=== PATIENT | female | born 1990 | race African-American/Black ===

== ENCOUNTER 2020-12-17 19:25 | Emergency (ER) | payer OTHER, SELFPAY ==
--- NOTE | ~2020-12-17 | XR_ITS ---
EXAMINATION: XR KNEE, LEFT CLINICAL INFORMATION: Knee pain COMPARISON: None TECHNIQUE: Two views of the left knee. FINDINGS: Bones and soft tissues are normal. No fracture or joint effusion. Alignment is anatomic. Joint spaces are well maintained. No abnormal soft tissue calcification. XR/XR knee LT 2V IMPRESSION: Normal left knee.
[2020-12-17 19:34] VITALS: BP 100/76; PULSE 73; O2SAT 97
[2020-12-17 20:49] VITALS: BP 163/94; PULSE 64; RESP 16; TEMP 36.5; O2SAT 100; BMI 41.1
--- NOTE | 2020-12-17 21:44 | ED_ITS ---
HPI - General Adult General Chief complaint: General Medical <Cy Dorantes NP - Last Filed: 02/02/21 17:32> Stated complaint: PAIN LT KNEE <Cy Dorantes NP - Last Filed: 02/02/21 17:32> Time Seen by Provider: 12/17/20 21:44 <Cy Dorantes NP - Last Filed: 02/02/21 17:32> Source: patient <Cy Dorantes NP - Last Filed: 02/02/21 17:32> Mode of arrival: ambulatory <Cy Dorantes NP - Last Filed: 02/02/21 17:32> Limitations: no limitations <Cy Dorantes NP - Last Filed: 02/02/21 17:32> History of Present Illness HPI narrative: Pain in the left knee after getting out of bed and feeling like stepped on it wrong way. <Cy Dorantes NP - Last Filed: 02/02/21 17:32> Onset (ago): day(s) <Cy Dorantes NP - Last Filed: 02/02/21 17:32> Location: left <Cy Dorantes NP - Last Filed: 02/02/21 17:32> Radiation: non-radiation <Cy Dorantes NP - Last Filed: 02/02/21 17:32> Severity: moderate <Cy Dorantes NP - Last Filed: 02/02/21 17:32> Quality: aching <Cy Dorantes NP - Last Filed: 02/02/21 17:32> Pain Consistency: intermittent <Cy Dorantes NP - Last Filed: 02/02/21 17:32> Relieving factors: immobilization <Cy Dorantes NP - Last Filed: 02/02/21 17:32> Exacerbating factors: movement <Cy Dorantes NP - Last Filed: 02/02/21 17:32> Associated symptoms: denies other symptoms <Cy Dorantes NP - Last Filed: 02/02/21 17:32> Treatments prior to arrival: none <Cy Dorantes NP - Last Filed: 02/02/21 17:32> Related Data Home medications: Previous Rx's Medication Instructions Recorded ibuprofen 800 mg PO Q8H PRN #30 tab 12/17/20 <Cy Dorantes NP - Last Filed: 02/02/21 17:32> Allergies/adverse reactions: Allergies Allergy/AdvReac Type Severity Reaction Status Date / Time No Known Allergies Allergy Verified 12/17/20 22:00 [No Known Allergies*] <Cy Dorantes NP - Last Filed: 02/02/21 17:32> Review of Systems Review of Systems: Constitutional: No Weight loss, No Fever, No Chills, No Night Sweats, No Fatigue, No Malaise ENT/Mouth: No Hearing loss, No Ear Pain, No Nasal Congestion, No Sinus Pain, No Hoarseness, No sore throat, No Rhinorrhea, No Swallowing Difficulty Eyes: No Eye Pain, No Swelling, No Redness, No Foreign Body, No Discharge, No Vision Changes Cardiovascular: No Chest Pain, No SOB, No Dyspnea on Exertion, No Orthopnea, No Edema, No Palpitations Respiratory: No Cough, No Sputum, No Wheezing, No Smoke Exposure, No Dyspnea Gastrointestinal: No Nausea, No Vomiting, No Diarrhea, No Constipation, No abdominal Pain, No Hematochezia, No Melena Genitourinary: no irregular bleeding, No Dysuria, No Urinary Frequency, No Hematuria, No Urinary Incontinence, No Urgency, No Flank Pain, No Urinary Flow Changes, No Hesitancy Musculoskeletal: No joint pain, No Myalgias, No Joint Swelling, as noted per HPI Skin: No Skin Lesions, No rash Neuro: No Weakness, No Numbness, No Paresthesias, No Loss of Consciousness, No Dizziness, No Headache Psych: No Social Issues Heme/Lymph: No Bruising, No Bleeding,No Lymphadenopathy Endocrine: No Polyuria, No Polydipsia, No Temperature Intolerance <Cy Dorantes NP - Last Filed: 02/02/21 17:32> Yes all other systems are reviewed and are negative <Cy Dorantes NP - Last Filed: 02/02/21 17:32> [facility] Past Medical History Medical History: Medical History (Updated 12/19/20 @ 00:[address]) No known health problems <Cy Dorantes NP - Last Filed: 02/02/21 17:32> Social History Social History: Social History Advance Directives: No Advance Directives Information Provided: Yes Patient : No <Cy Dorantes NP - Last Filed: 02/02/21 17:32> Physical Exam Vital Signs: Vital Signs: Last Vital Signs Temp 97.7 F 12/17/20 20:49 Pulse 64 12/17/20 20:49 Resp 16 12/17/20 20:49 BP 163/94 H 12/17/20 20:49 Pulse Ox 100 12/17/20 20:49 Body Mass Index 41.1 Reviewed <Cy ALESSANDRA Dorantes - Last Filed: 02/02/21 17:32> Vital Signs: Last Vital Signs Temp 97.7 F 12/17/20 20:49 Pulse 64 12/17/20 20:49 Resp 16 12/17/20 20:49 BP 163/94 H 12/17/20 20:49 Pulse Ox 100 12/17/20 20:49 Body Mass Index 41.1 <Wilbert Stapleton MD - Last Filed: 03/07/21 09:38> Const: General: cooperative and healthy appearing; No acute distress or intoxicated appearing <[facility] ALESSANDRA Dorantes - Last Filed: 02/02/21 17:32> Nutritional Appearance: average body habitus <[facility] Jose E BAR HOST/HOSTESS - Last Filed: 02/02/21 17:32> Orientation/consciousness: patient oriented x3 <[facility] ALESSANDRA Dorantes - Last Filed: 02/02/21 17:32> HENMT: Head: Yes normal to inspection <[facility] Jose E BAR HOST/HOSTESS - Last Filed: 02/02/21 17:32> Ears: hearing grossly normal bilaterally <[facility] ALESSANDRA Dorantes - Last Filed: 02/02/21 17:32> Resp: Effort & Inspection: normal respiratory effort <[facility] ALESSANDRA Dorantes - Last Filed: 02/02/21 17:32> Cardio: Jugular venous distension: no JVD <[facility] Jose E BAR HOST/HOSTESS - Last Filed: 02/02/21 17:32> GI: Inspection: Yes normal to inspection <[facility] ALESSANDRA Dorantes - Last Filed: 02/02/21 17:32> Percussion: Yes normal to percussion <[facility] ALESSANDRA Dorantes - Last Filed: 02/02/21 17:32> Auscultation: normal bowel sounds <[facility] ALESSANDRA Dorantes - Last Filed: 02/02/21 17:32> : General: Yes no CVA tenderness <Cyjong Dorantes NP - Last Filed: 02/02/21 17:32> Back/Spine/Pelvis: Back: no CVA tenderness <Cy Dorantes NP - Last Filed: 02/02/21 17:32> Skin: General skin exam: no rashes or lesions noted <Cy Dorantes NP - Last Filed: 02/02/21 17:32> Neuro: General: patient oriented x3 <Cy Dorantes NP - Last Filed: 02/02/21 17:32> Extrem: General: Yes normal to inspection <Cyjong Dorantes NP - Last Filed: 02/02/21 17:32> Course Course Course Narrative: I have reviewed the chart <Wilbert Stapleton MD - Last Filed: 03/07/21 09:38> Medical Decision Making Imaging Data Left knee x-ray: Radiologist's impression: [address] [id number] ReportSigned Patient: Denise BocanegraMR#: [id number]: 1990Acct:[id number]/Sex: 30 / FADM Date: 12/17/20Loc: HO.EDAttending Dr: Ordering Physician: Cy Dorantes NP Date of Service: 12/17/20 Procedure(s): XR knee LT 2V Accession Number(s): [id number] cc: Cy Dorantes NP~ EXAMINATION: XR KNEE, LEFT CLINICAL INFORMATION: Knee pain COMPARISON: None TECHNIQUE: Two views of the left knee. FINDINGS: Bones and soft tissues are normal. No fracture or joint effusion. Alignment is anatomic. Joint spaces are well maintained. No abnormal soft tissue calcification. XR/XR knee LT 2V IMPRESSION: Normal left knee. Dictated By:WILBERT MONTOYA MDSigned By:<Electronically signed by WILBERT MONTOYA MD in OV>12/17/202210 DD/ 44TD/TT: Medication Technician: SS <Cy Dorantes NP - Last Filed: 02/02/21 17:32> Discharge Plan Discharge Clinical Impression: Muscle strain of left knee <Cy Dorantes NP - Last Filed: 02/02/21 17:32> Patient Disposition: Home, Self-Care <Cy Dorantes NP - Last Filed: 02/02/21 17:32> Instructions: Knee Sprain (ED) <Cy Dorantes NP - Last Filed: 02/02/21 17:32> Additional Instructions: X-ray of the knee did not show any acute findings Your exam and presentation is consistent with strain of the muscle and ligament taken of the knee. You could have a partial strain/tear of the ligaments of the knee. For this please use Jamie wrap, crutches and ice, elevate and take ibuprofen as prescribed. If he continues to have pain after 1 week of this prescribed therapy follow-up with orthopedics. Return if any concerns or worsening symptoms Thank you <Cy Dorantes NP - Last Filed: 02/02/21 17:32> Prescriptions: New ibuprofen 800 mg tablet 800 mg PO Q8H PRN (Reason: pain) Qty: 30 RF: 0 <Cy Dorantes NP - Last Filed: 02/02/21 17:32> Referrals: Leonardo Zheng MD [Physician] - 1 week <Cy Dorantes NP - Last Filed: 02/02/21 17:32> Stand Alone Forms: Work/School Release <Cy Dorantes NP - Last Filed: 02/02/21 17:32> Interventions: ED Discharge Assessment Last Done: 12/17/20 23:13 <Cy Dorantes NP - Last Filed: 02/02/21 17:32> Discharge Date/Time: 12/17/20 23:30 <Cy Dorantes NP - Last Filed: 02/02/21 17:32>
[2020-12-17] MEDS: Ibuprofen 800 MG TABLET PO (23:14)
--- NOTE | 2020-12-17 23:39 | PC.NURSE ---
PT HAD BEEN EVALUATED BY PCT WITH CRUTCHES PT ABLE TO WALK BUT STATES IT HURTS TO WALK WITH ROSETTE WRAP AND CRUTCHES. PT GIVEN MOTRIN BY RN LIDIA. PT REQUEST A W/C TO GO TO WAITING ROOM. PT PLACED IN W/C AND THEN PROCEEDED TO SWEAR AT NURSE PT STATES SHE WANTS STRONGER MEDICATION AND SHE HAS NO ASSISTANCE AT HOME. PT STATES JUST CONTINUE TO SWEAR AT NURSE AND NURSE TOLD PT IF SHE CONTINUED TO SWEAR AT HER SHE WOULD HAVE TO GET SECURITY. NURSE GOT ASSISTANCE WITH PT TO MOVE PT TO WAITING ROOM WITH JAZMIN GUPTA. PT PRECEED TO BE ANGRY AND STATE ALL HER QUESTION WERE NOT ANSWER PT WAS TOLD WE COULD GET THE PROVIDER FOR HER IF SHE HAD ANYMORE QUESTION PT DECLINE AND WENT TO WAITING ROOM WITH PCT.
--- NOTE | 2020-12-18 00:06 | PC.NURSE ---
PT VERY UPSET ABOUT HER LIFE SITUATION AND SHE HAD JUST STARTED A NEW JOB AND THIS WAS HER 2 ND DAY AND SHE HAD TO LEAVE BECAUSE HER KNEE SHE STATED GAVE OUT NO FALL JUST PAIN. PT ALSO UPSET SHE STATES SHE A SINGLE MOM WHO LIVE IN A RETIREMENT. PT ANGRY TOLD TECH THAT SHE WANT TO GO TO [facility] SO THEY WOULD TREAT HER PAIN PROPERLY WHEN BEING MOVED TO WAITING ROOM.
== END 2020-12-17 23:30 | disposition home or self-care (01) ==
PROVIDERS: Emergency Provider Internal Medicine; PCP Internal Medicine
DX: S86.912A Strain of unspecified muscle(s) and tendon(s) at lower leg level, left leg, initial encounter (principal); X58.XXXA Exposure to other specified factors, initial encounter; Y93.89 Activity, other specified; Y92.511 Restaurant or cafe as the place of occurrence of the external cause; Y99.0 Civilian activity done for income or pay
CPT/HCPCS: 73560; 99283; 99284

== ENCOUNTER 2023-12-13 10:29 | Emergency (ER) | payer OTHER, SELFPAY ==
[2023-12-13 11:09] VITALS: BP 146/80; PULSE 62; RESP 20; TEMP 36.2; O2SAT 99; BMI 53.5
[2023-12-13] MEDS: Ketorolac Tromethamine 30 MG/ML VIAL IM (14:29)
--- NOTE | 2023-12-13 15:02 | ED.GENADULT ---
HPI - General Adult General Chief complaint: Dental/Oral Stated complaint: Dental Pain Time Seen by Provider: 12/13/23 14:02 Source: patient Mode of arrival: ambulatory Limitations: no limitations History of Present Illness HPI narrative: 33 yo f with pmhx of dental carries, dental pain presents with dental pain X months worsening. Pt states she noticed a fractured tooth a few months ago, but the pain started 2 days ago. She states she has not been to the dentist in over 5 years. Pt took tylenol with no relief. Reports associated headache. Denies vision changes, dizziness, sob, cp, nausea, vomiting, diarrhea, fevers, chills, changes in voice sore throat, drooling. Related Data Previous Rx's ?Medication ?Instructions ?Recorded ibuprofen 800 mg tablet 800 mg PO Q8H PRN pain #30 tabs 12/17/20 acetaminophen 325 mg capsule 325 mg PO Q4H PRN pain #30 caps 12/13/23 (Tylenol) amoxicillin 875 mg-potassium 1 tab PO BID 7 days #14 tabs 12/13/23 clavulanate 125 mg tablet ketorolac 10 mg tablet 10 mg PO TID PRN pain 5 days #15 12/13/23 tabs Allergies Allergy/AdvReac Type Severity Reaction Status Date / Time No Known Allergies Allergy Verified 12/13/23 11:11 [No Known Allergies*] Review of Systems Review of Systems: Yes all other systems are reviewed and are negative PMFSH Past Medical History Attestation statement: The following information was validated with the patient. Source: old records reviewed and nursing notes reviewed Medical History (Updated 12/13/23 @ 14:13 by LIANE Ferreira) No known health problems Social History Social History Smoked in Last 30 Days: Yes Use of substances other than those prescribed or required for medical reasons: Yes Substance Use Type: Marijuana Substance Use Frequency: Occasionally Advance Directives: No Do you have a plan to hurt others: No Plan Physical Exam ED Vital Signs: Vital Signs - 24 hr 12/13/23 11:09 12/13/23 15:23 Temperature 97.1 F 97.1 F Pulse Rate 62 62 Respiratory Rate 20 20 Blood Pressure 146/80 H 146/80 H Pulse Oximetry 99 99 Oxygen Delivery Method Room Air Room Air BMI result Body Mass Index 53.5 vss Appearance: Alert.? Oriented X3.? No acute distress.? Head: Normocephalic, atraumatic, no step-offs or deformities Eyes: Pupils equal, round and reactive to light.? ENT: Pharynx normal.?Tooth 14 broken. Poor dention. No abscess. No signs of Matt's. Speaking in full sentences controlling secretions well Neck: Normal inspection.? Neck supple.? CVS: Normal heart rate and rhythm.? Respiratory: No respiratory distress.? Skin: Skin warm and dry.? Normal skin color.? Normal skin turgor.? Extremities: No lower extremity edema.? No calf ttp. 5/5 strength to bilateral upper and lower extremities Neuro: Oriented X 3.? No motor deficit.? No sensory deficit. CN 2-12 intact Course Reevaluation(s) Reevaluation #1: Educated patient on diagnosis and treatment plan, answered all question, patient verbalizes understanding. At this time patient will be discharged home, advised to return with new or worsening symptoms. Educated on worrisome signs and symptoms and when to return. At this time I feel comfortable discharge home. Time: 15:49 Medications Administered Discontinued Medications Generic Name Dose Route Start Last Admin Trade Name Freq PRN Reason Stop Dose Admin Ketorolac Tromethamine 30 mg 12/13/23 14:12 12/13/23 14:29 Ketorolac Tromethamine 30 Mg/Ml Vial IM 12/13/23 14:13 30 mg ONCE ONE Administration Medical Decision Making Medical Decision Making [facility] Narrative: 1508 33 yo f presents with dental pain X 2 days following a broken tooth X 2 months. PE-, pain on upper mouth, tooth 14 Hx and PE likely dental pain. Unlikely dental abscess, airway compromise, acute respiratory distress. No signs of Matt's. Plan- karon kessler w/ dental follow up. Differential Diagnosis Differential Diagnoses: The differential diagnosis associated with the presentation includes Hx and PE likely dental pain. Unlikely dental abscess, airway compromise, acute respiratory distress. No signs of Matt's. Admission/Observation Consideration of admission/observation: Escalation of care including admission/observation considered Prescription Management I considered prescription management with: Pain Medication Discharge Plan Discharge Clinical Impression: Fracture, tooth, Pain, dental, Dental caries Patient Disposition: Home, Self-Care Instructions: Toothache (ED) Additional Instructions: Take your medications as prescribed. If you were prescribed antibiotics today, it is important that you take your medication to their entirety, do not skip any doses, do not finish them early. Follow-up with your primary care provider this week. Return to the emergency department with new or worsening symptoms. Such as fevers, chills, chest pain, shortness of breath, nausea, vomiting, dizziness, headache, vision changes, lethargy In case of emergency call 911 Follow-up with your dentist Toradol has been sent to your pharmacy, you tolerated this well in the department. Please take this as prescribed do not take this with ibuprofen, or other NSAIDs, do not mix this with alcohol. Side effects of this medication including increased risk for bleeding and possible kidney injury. Prescriptions: New amoxicillin-pot clavulanate 875-125 mg tablet 1 tab PO BID 7 Days Qty: 14 0RF acetaminophen [Tylenol] 325 mg capsule 325 mg PO Q4H PRN (Reason: pain) Qty: 30 0RF ketorolac 10 mg tablet 10 mg PO TID PRN (Reason: pain) 5 Days Qty: 15 0RF No Action ibuprofen 800 mg tablet 800 mg PO Q8H PRN (Reason: pain) Qty: 30 0RF Referrals: Physician,None [Primary Care Provider] - 2 days Stand Alone Forms: Work/School Release Interventions: ED Discharge Assessment Last Done: 12/13/23 15:23 Discharge Date/Time: 12/13/23 15:24 Print Language: Luxembourgish
[2023-12-13 15:23] VITALS: BP 146/80; PULSE 62; RESP 20; TEMP 36.2; O2SAT 99
== END 2023-12-13 15:24 | disposition home or self-care (01) ==
PROVIDERS: Emergency Provider Student in an Organized Health Care Education/Training Program
DX: S02.5XXA Fracture of tooth (traumatic), initial encounter for closed fracture (principal); K02.9 Dental caries, unspecified; X58.XXXA Exposure to other specified factors, initial encounter; Y93.9 Activity, unspecified; Y92.9 Unspecified place or not applicable; Y99.9 Unspecified external cause status
CPT/HCPCS: 96372; 99284; J1885